=== PATIENT | male | born 1990 | race Caucasian/White ===

== ENCOUNTER 2020-07-27 11:53 | Outpatient (REF) | payer OTHER, SELFPAY ==
[2020-07-27 14:10] LABS: Hematocrit 46.4 % (42-52); Hemoglobin 15.7 g/dl (14.0-18.0); Mean Corpuscular HGB Conc 33.8 g/dl (31.0-36.0); Mean Corpuscular Hemoglobin 29.9 pg (27.0-33.0); Mean Corpuscular Volume 88.4 fL (80-98); Mean Platelet Volume 10.8 fL (9.4-12.4); Platelet Count 234 X10*3/uL (160-400); Red Blood Count 5.25 X10*6/uL (4.60-5.80); White Blood Count 6.2 X10*3/uL (4.8-10.8)
[2020-07-27 14:36] LABS: Alanine Aminotransferase 17 U/L (0-40); Albumin Level 4.6 g/dL (3.5-5.0); Alkaline Phosphatase 59 U/L (39-117); Anion Gap 13 (12-20); Aspartate Amino Transferase 15 U/L (5-37); Bilirubin Total 1.2 mg/dL (0.0-1.0); Blood Urea Nitrogen 15 mg/dL (9-16); Calcium 9.1 mg/dL (8.4-10.2); Carbon Dioxide 25 mmol/L (22-29); Chloride 106 mmol/L (96-108); Estimated Glomerular Filt Rate > 60; Glucose Random 82 mg/dL (60-115); Magnesium 2.3 mg/dL (1.6-2.6); Potassium 3.9 mmol/L (3.3-5.1); Sodium 140 mmol/L (135-145); Total Protein 6.8 g/dL (6.5-8.0)
[2020-07-27 14:44] LABS: TSH reflex Free T4 1.34 uIU/mL (0.32-4.0)
== END 2020-07-27 11:54 | disposition home or self-care (01) ==
LOC: HO.HMGCLDS 11:53
PROVIDERS: PCP Internal Medicine; Visit Provider Hospitalist
DX: I49.9 Cardiac arrhythmia, unspecified (principal)
CPT/HCPCS: 36415; 80053; 83735; 84443; 85027

== ENCOUNTER 2022-11-26 12:33 | Outpatient (AMB) | payer OTHER, SELFPAY ==
[2022-11-26 12:49] VITALS: BP 126/70; PULSE 62; O2SAT 98; BMI 29.5
--- NOTE | 2022-11-26 12:49 | A.OFFPC_ITS ---
Vital Signs 11/26/22 12:49 Height 6 ft 2 in Weight 230 lb BMI 29.5 BP 126/70 Blood Pressure Location Lt brachial Position Sitting Pulse 62 Pulse Source Pulse Oximeter Pulse Oximetry (%) 98 Oxygen Delivery Method Room Air Intake Visit Reasons: Annual PE Intake Note: Pt is here today for his PE Allergies No Known Allergies Allergy (Verified 11/26/22 13:13) Medication List - Last Reconciled 11/26/22 by Ginette Gaxiola MD No Known Home Meds Tobacco use date assessed: 11/26/22 Dental Screening Dental Screen Date: 11/26/22 Did you have a dental visit in the last 12 months?: Yes Did you have a dental problem in the last 6 months where you did not have access to dental care?: No Was dental information given to patient?: Patient has dentist [facility] Medical History Balanitis Right ankle joint deformity Right ankle pain Surgical History No pertinent past surgical history Family History Other No significant family history Social History Housing: House Alcohol intake: current Alcohol intake frequency: a few times a week Alcohol type: beer Patient Tobacco Use Status: Never used Tobacco e-Cigarette/Vaping Use: Never Used service: No Current occupational status: employed Cognitive needs: No Hearing needs: No Vision needs: Yes Questionnaire Thrive Questionnaire Date Thrive assessed: 05/29/22 AUDIT C Alcohol Use Questionnaire (AUDIT-C) 1. How often do you have a drink containing alcohol?: Monthly or less 2. How many drinks containing alcohol do you have on a typical day when you are drinking?: 1 or 2 3. How often do you have six or more drinks on one occasion?: Never Total Score: 1 ROSINA-7 AMB Questionnaire ROSINA-7 Date ROSINA - 7 assessed: 05/29/22 Source: Developed by Drs. Lamont Sullivan, Mery Torres, Michael Yost and colleagues, with an educational timmy from [employer]. Review of Systems Const Denies body aches, Denies fatigue, Denies fever(s), Denies headache(s) and Denies weakness Eyes Denies change in vision ENT Denies dizziness, Denies headache(s), Denies nasal congestion, Denies nasal discharge and Denies sore throat Card Denies chest pain, Denies lightheadedness, Denies palpitations and Denies dyspnea Resp Denies chest congestion, Denies cough, Denies dyspnea and Denies wheezing GI Denies abdominal pain, Denies change in bowel habits and Denies heartburn Denies hematuria, Denies difficulty urinating, Denies erectile dysfunction, Denies genital lesions, Denies genital pain, Denies dysuria, Denies penile discharge, Denies urinary frequency and Denies urinary urgency Skin/Breast Denies lesions and Denies rash Neuro Denies dizziness, Denies headache(s) and Denies weakness Psych Reports no additional complaints Endo Denies fatigue, Denies polydipsia, Denies polyuria and Denies palpitations Dennis/Lymph Denies easy bruising Aller/Immun Denies seasonal rhinorrhea and Denies wheezing Physical exam (Primary Care) Vital Signs: Last Vital Signs Pulse 62 11/26/22 12:49 BP 126/70 11/26/22 12:49 Pulse Ox 98 11/26/22 12:49 Oxygen Delivery Method Room Air 11/26/22 12:49 BMI result Body Mass Index 29.5 Tobacco/Smoking Status: Tobacco use Status Tobacco use date assessed 11/26/22 11/26/22 12:55 Patient Tobacco Use Status Never used Tobacco 11/26/22 12:55 e-Cigarette/Vaping Use Never Used 11/26/22 12:55 Thrive Assessment: Date of Thrive Assessment Date Thrive assessed 05/29/22 11/26/22 12:55 Const General: cooperative, healthy appearing and no acute distress Nutritional Appearance: obese and overweight Orientation/consciousness: patient oriented x3 HENMT Head: Yes normal to inspection and Yes normocephalic Ears: hearing grossly normal bilaterally, external ears normal, TM's normal bilaterally and EAC's normal General nose exam: Normal external nose present Face and sinus: Yes face symmetric Mouth: Normal oral and palatal mucosa present, oropharynx normal and moist mucous membranes Teeth and gingiva: dentition normal Eyes General: appearance normal, both eyes and all related structures Pupils: Equal, round and reactive pupils present EOM: EOMs intact bilaterally Neck Neck: Yes full ROM, Yes no lymphadenopathy and Yes supple Thyroid: Thyroid normal Chest Chest palpation & inspection: normal inspection of the chest and normal palpation of entire chest wall Resp Effort & Inspection: normal respiratory effort and able to speak in complete sentences Auscultation: clear to auscultation bilaterally Cardio Rate: regular rate Rhythm: regular rhythm Heart sounds: S1 normal heart sound present and S2 normal heart sound present GI Inspection: Yes normal to inspection Palpation (GI): Soft to palpation, nontender, no guarding and no masses Auscultation: normal bowel sounds General: Yes Bimanual renal exam normal bilaterally and Yes no CVA tenderness Male General Exam: Yes normal external exam, No inguinal lymphadenopathy and No Genital lesions present Penis: normal penis, circumcised and No Genital lesions present Meatus: meatus normal Scrotum: scrotum normal and no masses Testes: Testes normal, no testicular mass and no testicular tenderness Back/Spine/Pelvis Back: no CVA tenderness and No back tenderness Skin General skin exam: no rashes or lesions noted Neuro General: patient oriented x3, gait normal, tone normal, moves all extremities, Normal light touch and pain sensation, no focal motor deficits and CN's II-XI intact bilaterally Cranial nerves: Yes Equal, round and reactive pupils present Gait exam (Neuro): Normal gait present Extrem General: Yes normal to inspection, Yes full ROM, Yes no joint enlargement, Yes no clubbing, cyanosis or edema, Yes no calf tenderness and Yes normal gait Psych Appearance: grossly normal and well kempt Mental Status: mental status grossly normal Speech and movement: Normal speech and movement present Affect: normal affect Attitude: cooperative Thought process: Normal thought process present Assessment and Plan Assessment & Plan (1) Annual visit for general adult medical examination with abnormal findings: Code(s): Z00.01 - Encounter for general adult medical examination with abnormal findings Plan: Will check appropriate labs. Recommended dental visit every 6 months and regular eye exams, at least every 2 years. Take adequate calcium in diet and vitamin-D 3 at 2000 IU per cap once a day, in addition to weight-bearing exercises to help maintain good muscle tone and weight control. Instructed to do self-testicular exam to check for any mass.. Declines to get any vaccines (2) Obesity: Code(s): E66.9 - Obesity, unspecified Plan: Discussed need to increase activity and wt reduction. Cut back on intake of alcohol Recommended focusing on improving your health instead of dieting. : Eat Me diterranean diet, limit foods high in fat, sugar, and calories, eat slowly, pay attention to portion sizes, plan your meals ahead of time, start regular physical activity 150 minutes of moderate intensity exercise or 90 minutes/week of vigorous exercise and increase water intake. (3) Routine screening for STI (sexually transmitted infection): Code(s): Z11.3 - Encounter for screening for infections with a predominantly sexual mode of transmission Plan: Ordered screening for HIV, GC chlamydia Orders: Orders Glucose Fasting Today E66.9 - Obesity, unspecified, Z00.01 - Encounter for general adult medical examination with abnormal findings Lipid Panel Today E66.9 - Obesity, unspecified, Z00.01 - Encounter for general adult medical examination with abnormal findings HIV Ab/Ag Today Z00.01 - Encounter for general adult medical examination with abnormal findings, Z11.3 - Encounter for screening for infections with a predominantly sexual mode of transmission CT NG by PCR Today Z00.01 - Encounter for general adult medical examination with abnormal findings, Z11.3 - Encounter for screening for infections with a predominantly sexual mode of transmission Coding Level of Care Code Est Pt Prev Care 18-39y(40033) Diagnoses Annual visit for general adult medical examination with abnormal findings Z00.01 Obesity E66.9 Routine screening for STI (sexually transmitted infection) Z11.3
== END 2022-11-26 13:27 | disposition home or self-care (01) ==
PROVIDERS: Visit Provider Internal Medicine
DX: Z00.01 Encounter for general adult medical examination with abnormal findings (principal); E66.9 Obesity, unspecified; Z11.3 Encounter for screening for infections with a predominantly sexual mode of transmission; Z68.29 Body mass index [BMI] 29.0-29.9, adult
CPT/HCPCS: 99395

== ENCOUNTER 2022-11-26 13:29 | Outpatient (REF) | payer OTHER, SELFPAY ==
[2022-11-26 17:15] LABS: Cholesterol 162 mg/dL; Glucose Fasting 89 mg/dL (60-99); HDL Cholesterol 47 mg/dL; LDL Cholesterol Calculated 94 mg/dl; Triglycerides 105 mg/dL
[2022-11-27 04:08] LABS: HIV AB/AG Nonreactive (Nonreactive); HIV Num 1 0.04 S/CO (0.00-0.99)
[2022-11-27 05:13] LABS: CT PCR NOT DETECTED (Not Detect.); NG PCR NOT DETECTED (Not Detect.)
== END 2022-11-26 13:30 | disposition home or self-care (01) ==
LOC: HO.HMGCLDS 13:29
PROVIDERS: PCP Internal Medicine; Visit Provider Internal Medicine
DX: Z00.01 Encounter for general adult medical examination with abnormal findings (principal); Z11.3 Encounter for screening for infections with a predominantly sexual mode of transmission; Z11.4 Encounter for screening for human immunodeficiency virus [HIV]; E66.9 Obesity, unspecified
CPT/HCPCS: 0353U; 36415; 80061; 82947; 87389

== ENCOUNTER 2023-02-12 15:20 | Outpatient (AMB) | payer OTHER, SELFPAY ==
--- NOTE | 2023-02-12 15:23 | AM.OFFWIN_ITS ---
Intake Vital Signs 02/12/23 15:24 Height 6 ft 2 in Weight 223 lb BMI 28.6 BP 150/70 H Blood Pressure Location Lt brachial Position Sitting Pulse 70 Pulse Source Pulse Oximeter Temp 97.6 F Temp Source Temporal Artery Scan Pulse Oximetry (%) 96 Oxygen Delivery Method Room Air Intake Visit Reasons: EP Rash/RT FT concerns Intake Note: pt is here for c/o rash on right foot Patient Tobacco Use Status: Never used Tobacco Allergies No Known Allergies Allergy (Verified 02/12/23 15:25) Do you need a note to return to daycare/school/sports/work: Yes HPI HPI Comments History of Present Illness Details 32-year-old male who presents for concer n of a rash on his upper back as well as a bump on his foot. Denies fevers chills. Both have been present for several months [facility] Medical History Balanitis Right ankle joint deformity Right ankle pain Surgical History No pertinent past surgical history Family History Other No significant family history Social History Housing: House Alcohol intake: current Alcohol intake frequency: a few times a week Alcohol type: beer Patient Tobacco Use Status: Never used Tobacco e-Cigarette/Vaping Use: Never Used service: No Current occupational status: employed Cognitive needs: No Hearing needs: No Vision needs: Yes Review of Systems Musc Details: Bump on the great toe of the right foot Skin/Breast Details: Rash Physical Exam Vital Signs: Last Vital Signs Temp 97.6 F 02/12/23 15:24 Pulse 70 02/12/23 15:24 BP 150/70 H 02/12/23 15:24 Pulse Ox 96 02/12/23 15:24 Oxygen Delivery Method Room Air 02/12/23 15:24 BMI result Body Mass Index 28.6 Const General: cooperative, healthy appearing, no acute distress and alert Orientation/consciousness: patient oriented x3 Limitations: no limitations HEENT Head: Yes normal to inspection Ears: hearing grossly normal bilaterally General nose exam: Normal external nose present Resp Effort & Inspection: normal respiratory effort and able to speak in complete sentences Cardio Rate: regular rate Skin Other: Multiple pustules and comedones on the upper portion of the back General skin exam: no rashes or lesions noted Neuro General: patient oriented x3 Extrem Other: Bump on the lateral aspect and dorsal aspect of left great toe mild erythema no warmth no fluid collection. General: Yes normal to inspection Assessment & Plan Assessment & Plan (1) Acne vulgaris: Code(s): L70.0 - Acne vulgaris Plan With regard to the upper back presumes acne vulgaris will start or topical treatment with topical clindamycin and benzoyl. Lump on the foot no fluid collection or abscess signs of infection likely beginning of bunion. Recommend padding following up with Podiatry outpatient Discharge instructions, follow up and treatment are discussed with patient in my usual fashion. Alternatives in treatment are also discussed. The patient will return for worsening symptoms or as needed. Advised that any labs/imaging ordered will be followed up on and contact made if further treatment needed. Counseled that patient's condition may require further evaluation and/or treatment. Symptoms of concern for worsening disorder discussed in detail in my customary manner. Patient does verbalize understanding of the plan, there are no apparent barriers to communication. The patient is given the opportunity to ask questions and have them answered to his/her satisfaction Medications: New clindamycin phosphate 1% 1 appl topical DAILY 60 mL 0RF benzoyl peroxide 2.5% 1 appl topical BID 227 grams 0RF Coding Level of Care Code Est Pt Level 3 (50301) Diagnoses Acne vulgaris L70.0
[2023-02-12 15:24] VITALS: BP 150/70; PULSE 70; TEMP 36.4; O2SAT 96; BMI 28.6
== END 2023-02-12 15:52 | disposition home or self-care (01) ==
PROVIDERS: PCP Internal Medicine; Visit Provider Physician Assistant
DX: L70.0 Acne vulgaris (principal)
CPT/HCPCS: 99213

== ENCOUNTER 2023-03-01 02:48 | Emergency (ER) | payer OTHER, SELFPAY ==
--- NOTE | ~2023-03-01 | XR_ITS ---
EXAMINATION: XR FOOT, RIGHT CLINICAL INFORMATION: Pain. COMPARISON: None available. TECHNIQUE: AP, lateral, and oblique views of the right foot. FINDINGS: The bone mineralization is within normal limits. There is mild first metatarsophalangeal and interphalangeal degenerative change with mild loss of joint space, subchondral sclerosis and prominent osteophytes at the first metatarsophalangeal joint. There is soft tissue swelling along the first metatarsophalangeal joint. There is no acute fracture. XR/XR foot RT min 3V IMPRESSION: First metatarsophalangeal and interphalangeal degenerative change with prominent osteophytes at the first metatarsophalangeal joint and soft tissue swelling. No acute osseous abnormality seen.
[2023-03-01 02:50] VITALS: BP 120/77; PULSE 74; RESP 18; TEMP 37.2; O2SAT 96; BMI 28.6
[2023-03-01 04:38] VITALS: BP 115/62; PULSE 72; RESP 18; TEMP 36.7; O2SAT 95
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
[2023-03-01] MEDS: oxyCODONE HCl Immed Release 5 MG TABLET PO (05:14)
[2023-03-01] MEDS: predniSONE 20 MG TABLET 40 MG PO (05:14)
== END 2023-03-01 05:25 | disposition home or self-care (01) ==
PROVIDERS: Emergency Provider Emergency Medicine; PCP Internal Medicine
DX: M10.9 Gout, unspecified (principal); M79.674 Pain in right toe(s)
CPT/HCPCS: 73630; 99283; 99284

== ENCOUNTER 2023-03-16 10:30 | Outpatient (AMB) | payer OTHER, SELFPAY ==
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
[2023-03-16 10:49] VITALS: BP 136/78; PULSE 70; O2SAT 97; BMI 28.9
== END 2023-03-16 12:39 | disposition home or self-care (01) ==
PROVIDERS: PCP Internal Medicine; Visit Provider Internal Medicine
DX: M79.674 Pain in right toe(s) (principal)
CPT/HCPCS: 99213

== ENCOUNTER 2023-03-16 11:28 | Outpatient (REF) | payer OTHER, SELFPAY ==
[2023-03-16 14:12] LABS: Anion Gap 10 (12-20); Blood Urea Nitrogen 14 mg/dL (9-16); Calcium 9.5 mg/dL (8.4-10.2); Carbon Dioxide 27 mmol/L (22-29); Chloride 108 mmol/L (96-108); Estimated Glomerular Filt Rate > 60; Glucose Random 81 mg/dL (60-115); Potassium 4.4 mmol/L (3.3-5.1); Sodium 141 mmol/L (135-145); Uric Acid 5.2 mg/dL (3.4-7.0)
[2023-03-16 14:57] LABS: Erythrocyte Sedimentation Rate 1 MM/HR (0-15)
[2023-03-17 12:49] LABS: CRP High Sensitivity 0.6 mg/L
== END 2023-03-16 11:29 | disposition home or self-care (01) ==
LOC: HO.HMGCLDS 11:28
PROVIDERS: PCP Internal Medicine; Visit Provider Internal Medicine
DX: M79.674 Pain in right toe(s) (principal)
CPT/HCPCS: 36415; 80048; 84550; 85652; 86141

== ENCOUNTER 2024-03-29 08:57 | Outpatient (AMB) | payer OTHER, SELFPAY ==
--- NOTE | 2024-03-29 09:07 | A.OFFPC_ITS ---
Vital Signs 03/29/24 09:32 Height 6 ft 2 in Weight 230 lb BMI 29.5 BP 132/70 Blood Pressure Location Rt brachial Position Sitting Pulse 67 Pulse Source Pulse Oximeter Pulse Oximetry (%) 98 Oxygen Delivery Method Room Air Intake Visit Reasons: PE Intake Note: Pt is here today for his PE Allergies No Known Allergies Allergy (Verified 04/03/24 23:27) Medication List - Last Reconciled 04/03/24 by Ginette Gaxiola MD No Known Home Meds Tobacco use date assessed: 03/29/24 Dental Screening Dental Screen Date: 03/29/24 Did you have a dental visit in the last 12 months?: Yes Did you have a dental problem in the last 6 months where you did not have access to dental care?: Yes Was dental information given to patient?: Patient has dentist HPI PE HPI Details - The patient is a 33-year-old male pres enting for physical exam - Overweight: Patient reports a gain of 5 pounds since February of last year. Current BMI is 29, placing him in the overweight category. He acknowledges the need to return to dieting to prevent progression to obesity. - Blood pressure has been reportedly sta ble. - Mild Tinnitus: Describes a slight ring ing noise in the ear, denies dizziness. Change noted this year. - History of COVID-19: Possibly experien milagro COVID-19 during the initial outbreak but not formally diagnosed or recorded in the medical chart. Symptoms were observed simultaneously with a sibling who tested positive. [facility] Medical History Pain of right great toe Balanitis Right ankle joint deformity Right ankle pain Surgical History No pertinent past surgical history Family History Other No significant family history Social History Housing: House Alcohol intake: current Alcohol intake frequency: a few times a month Alcohol type: beer Patient Tobacco Use Status: Never used Tobacco e-Cigarette/Vaping Use: Never Used Second Hand Smoke Exposure: No service: No Current occupational status: employed Cognitive needs: No Hearing needs: No Vision needs: Yes Questionnaire PHQ-9 Over the last 2 weeks, how often have you been bothered by any of the following problems? 1. Little interest or pleasure in doing things: not at all 2. Feeling down, depressed, or hopeless: not at all 3. Trouble falling or staying asleep, or sleeping too much: not at all 4. Feeling tired or having little energy: not at all 5. Poor appetite or overeating: not at all 6. Feeling bad about yourself - or that you are a failure or have let yourself or your family down: not at all 7. Trouble concentrating on things, such as reading the newspaper or watching television: not at all 8. Moving or speaking so slowly that other people could have noticed. Or the opposite - being so fidgety or restless that you have been moving around a lot more than usual: not at all 9. Thoughts that you would be better off or of hurting yourself in some way: not at all Total score: 0 Depression Screening Interpretation: Negative Depression Screening Done: Yes 36544 - PHQ-9 Billing: Yes Source: Developed by Drs. Lamont Sullivan, Mery Torres, Michael Yost and colleagues, with an educational timmy from [employer]. Thrive Questionnaire Date Thrive assessed: 03/29/24 I am a: Patient What is your living situation today?: I have a steady place to live Within the past 12 months, did the food you bought not last and you didn't have the money to get more?: Never true Within the past 12 months, did you worry whether your food would run out before you got money to buy more?: Never true Do you have trouble paying for medicines?: No Do you have trouble getting transportation to medical appointments?: No Do you have trouble paying your heating and electricity bill?: No Do you have trouble taking care of your child, family member or friend?: No Do you have trouble with day-to-day activities such as bathing, preparing meals, shopping, managing finances, etc.?: No Are you currently unemployed and looking for a job?: No Are you interested in more education?: No Please select the resources that you would like help with: None Currently or been in a relationship where the following occur: I choose not to answer THRIVE Score: 0 AUDIT C Alcohol Use Questionnaire (AUDIT-C) 1. How often do you have a drink containing alcohol?: Monthly or less 2. How many drinks containing alcohol do you have on a typical day when you are drinking?: 3 or 4 3. How often do you have six or more drinks on one occasion?: Less than monthly Total Score: 3 ROSINA-7 AMB Questionnaire ROSINA-7 Date ROSINA - 7 assessed: 03/29/24 Feeling nervous, anxious, or on edge: 0 = Not at all Not being able to stop or control worryin = Not at all Worrying too much about different things: 0 = Not at all Trouble relaxin = Not at all Being so restless that it is hard to sit still: 0 = Not at all Becoming easily annoyed or irritable: 0 = Not at all Feeling afraid as if something awful might happen: 0 = Not at all Total ROSINA-7 score (0-4 normal; 5-9 mild; 10-14 moderate; 15-21 severe): 0 Source: Developed by Drs. Lamont Sullivan, Mery Torres, Michael Yost and colleagues, with an educational timmy from [employer]. ROSINA-7 Assessment Billing ROSINA-7 Assessment Tool: ROSINA-7 Assessment 42916 Review of Systems Const Denies body aches, Denies fatigue, Denies fever(s), Denies headache(s) and Denie s weakness Eyes Denies change in vision ENT Denies dizziness, Denies headache(s), Denies nasal congestion, Denies nasal discharge and Denies sore throat Card Denies chest pain, Denies lightheadedness, Denies palpitations and Denies dyspnea Resp Denies chest congestion, Denies cough, Denies dyspnea and Denies wheezing GI Denies abdominal pain, Denies change in bowel habits and Denies heartburn Denies hematuria, Denies difficulty urinating, Denies erectile dysfunction, Denies genital lesions, Denies genital pain, Denies dysuria, Denies penile discharge, Denies urinary frequency and Denies urinary urgency Musc Reports no additional complaints Skin/Breast Denies lesions and Denies rash Neuro Denies dizziness, Denies headache(s) and Denies weakness Psych Reports no additional complaints Endo Denies fatigue, Denies polydipsia, Denies polyuria and Denies palpitations Dennis/Lymph Denies easy bruising Aller/Immun Denies seasonal rhinorrhea and Denies wheezing Physical exam (Primary Care) Vital Signs: Last Vital Signs Pulse 67 03/29/24 09:32 BP 132/70 03/29/24 09:32 Pulse Ox 98 03/29/24 09:32 Oxygen Delivery Method Room Air 03/29/24 09:32 BMI result Body Mass Index 29.5 Tobacco/Smoking Status: Tobacco use Status Tobacco use date assessed 03/29/24 03/29/24 09:09 Patient Tobacco Use Status Never used Tobacco 03/29/24 09:08 e-Cigarette/Vaping Use Never Used 03/29/24 09:08 PHQ-9: PHQ-9 Score PHQ-9: Total score 0 03/29/24 10:16 Depression Screening Interpretation: Negative Thrive Assessment: Date of Thrive Assessment Date Thrive assessed 03/29/24 03/29/24 09:09 Currently or been in a relationship where the following occur: I choose not to answer Advance Care Planning discussion: Completed/Scanned Date of discussion: 03/29/24 Who was present: Patient Forms completed: Health Care Proxy Time spent: 16-45 minutes Actual minutes spent: 2 Const General: no acute distress Orientation/consciousness: patient oriented x3 HENMT Head: Yes normocephalic Ears: external ears normal, TM's normal bilaterally and EAC's normal General nose exam: Normal external nose present Face and sinus: Yes face symmetric Mouth: Normal oral and palatal mucosa present, oropharynx normal and moist mucous membranes Eyes General: appearance normal, both eyes and all related structures Neck Neck: Yes full ROM, Yes no lymphadenopathy and Yes supple Thyroid: Thyroid normal Resp Effort & Inspection: normal respiratory effort and able to speak in complete sentences Auscultation: clear to auscultation bilaterally Cardio Rate: regular rate Rhythm: regular rhythm Heart sounds: S1 normal heart sound present and S2 normal heart sound present GI Palpation (GI): Soft to palpation, nontender, no guarding and no masses Auscultation: normal bowel sounds General: Yes no CVA tenderness Male General Exam: Yes normal external exam Back/Spine/Pelvis Back: no CVA tenderness Skin General skin exam: no rashes or lesions noted Neuro General: patient oriented x3, gait normal, tone normal, moves all extremities, Normal light touch and pain sensation, no focal motor deficits and CN's II-XI intact bilaterally Gait exam (Neuro): Normal gait present Extrem General: Yes normal to inspection, Yes full ROM, Yes no joint enlargement, Yes no clubbing, cyanosis or edema and Yes normal gait Psych Appearance: grossly normal and well kempt Mental Status: mental status grossly normal Speech and movement: Normal speech and movement present Affect: normal affect Thought process: Normal thought process present Thought content: Normal thought content present Coding Level of Care Code Est Pt Prev Care 18-39y(88698) Diagnoses Annual visit for general adult medical examination with abnormal findings Z00.01 Encounter for counseling regarding advance directives Z71. Overweight with body mass index (BMI) 25.0-29.9 E66.3 Additional Codes PHQ-9 - 01144 - PHQ-9 Billing: Yes ([id number]) ROSINA-7 Assessment Billing - RSOINA-7 Assessment Tool: ROSINA-7 Assessment 08356 ([id number]) Vital Signs *Quality* - Advance Care Planning discussion: Completed/Scanned ([id number]) Vital Signs *Quality* - Time spent: 16-45 minutes ([id number]) Assessment & Plan Assessment & Plan (1) Annual visit for general adult medical examination with abnormal findings: Code(s): Z00.01 - Encounter for general adult medical examination with abnormal findings Plan: Will check appropriate labs. Recommended dental visit every 6 months and regular eye exams, at least every 2 years. Take adequate calcium in diet and vitamin-D 3 at 2000 IU per cap once a day, in addition to weight-bearing exercises to help maintain good muscle tone and weight control. Instructed to do self testicular exam check for any mass. Declines vaccines (2) Encounter for counseling regarding advance directives: Code(s): Z71.89 - Other specified counseling Plan: Initiated the conversation about Advanced Directives. Advanced Directives help patients prepare for current and future decisions about their medical treatment and place of care. Discussed with patient that it is a process where a patients current condition and prognosis are reviewed, their wishes for information regarding their illness are elicited, and likely medical dilemmas are presented and options discussed. Healthcare proxy form completed. The form can be amended as needed, reviewed yearly and make changes as needed (3) Overweight with body mass index (BMI) 25.0-29.9: Code(s): E66.3 - Overweight Plan - Overweight: Advised patient on dietary management to prevent further weight gain. Recommended follow-up fasting blood work. - Mild Tinnitus: No specific treatment necessary unless symptoms worsen. Suggested moderation in use of earphones to avoid exacerbation. - History of COVID-19: No further action required unless symptomatic. During the visit, I discussed with the patient his current health status, emphasizing the need to manage his weight through dietary adjustments. I reiterated the importance of routine fasting blood work and maintaining regular eye and dental check-ups. We reviewed past lab results, including negative STD screening tests, and noted his mild tinnitus, reassuring him that it does not require treatment unless it progresses. We talked about the importance of drinking in moderation. Patient was informed and verbally consented to the use of an ambient scribe for clinic note documentation during this visit. Orders: Orders Alanine Aminotransferase 03/29/24 E66.3 - Overweight, Z00.01 - Encounter for general adult medical examination with abnormal findings, Z71.89 - Other specified counseling Basic Metabolic Panel Fasting 03/29/24 E66.3 - Overweight, Z00.01 - Encounter for general adult medical examination with abnormal findings, Z71.89 - Other specified counseling Aspartate Amino Transferase 03/29/24 E66.3 - Overweight, Z00.01 - Encounter for general adult medical examination with abnormal findings, Z71.89 - Other specified counseling Lipid Panel 03/29/24 E66.3 - Overweight, Z00.01 - Encounter for general adult medical examination with abnormal findings, Z71.89 - Other specified counseling
[2024-03-29 09:32] VITALS: BP 132/70; PULSE 67; O2SAT 98; BMI 29.5
== END 2024-03-29 10:15 | disposition home or self-care (01) ==
PROVIDERS: PCP Internal Medicine; Visit Provider Internal Medicine
DX: Z00.01 Encounter for general adult medical examination with abnormal findings (principal); Z71.89 Other specified counseling; E66.3 Overweight

== ENCOUNTER → 2024-03-29 08:57 | Outpatient (BNVA) | payer OTHER, SELFPAY | PROVIDERS: PCP Internal Medicine; Visit Provider Internal Medicine | DX: Z00.01 Encounter for general adult medical examination with abnormal findings (principal); E66.3 Overweight; Z68.29 Body mass index [BMI] 29.0-29.9, adult; Z71.89 Other specified counseling | CPT/HCPCS: 96127; 99395; 99497 ==

== ENCOUNTER 2024-09-06 17:05 | Emergency (ER) | payer OTHER, SELFPAY ==
--- NOTE | ~2024-09-06 | CT_ITS ---
CLINICAL HISTORY: R flank pain CT abdomen and pelvis without contrast Comparison: None Findings: The lung bases are clear. The gallbladder and solid organs are within normal limits. No renal stones. No bowel obstruction, pneumoperitoneum, or pneumatosis. Pelvic contents unremarkable. Normal appendix. No acute fracture. IMPRESSION: No acute findings. This document has been electronically signed by: Sal Simpson MD on 09/07/2024 00:16:53
[2024-09-06 17:17] VITALS: BP 100/73; PULSE 101; RESP 18; TEMP 36.6; O2SAT 96; BMI 29.5
--- NOTE | 2024-09-06 17:19 | ED_ITS ---
HPI - General Adult General Chief complaint: Nausea/Vomiting/Diarrhea Stated complaint: Flank/Abdominal pain, vomiting Time Seen by Provider: 09/06/24 21:03 Source: patient and old records reviewed Mode of arrival: ambulatory Limitations: no limitations History of Present Illness ED Provider: EDU SINGH narrative: 33 yo male with no sig PMH here with c/o yellow diarrhea and nausea vomiting all day. No recent travel, abx, food exposures. He has some sick contacts but they haven't vomited. No fevers, bloody stools, he denies abdominal pain. He did start drinking fluids in the waiting room. complaint: n/v/d Onset (ago): day(s) (1) Location: abdomen Radiation: non-radiation Severity: mild Relieving factors: none Exacerbating factors: eating Associated symptoms: loss of appetite, malaise, nausea/vomiting and weakness Treatments prior to arrival: none Related Data Previous Rx's ?Medication ?Instructions ?Recorded ondansetron 4 mg disintegrating 4 mg PO Q8H PRN nausea and 09/06/24 tablet vomiting #20 tabs Allergies Allergy/AdvReac Type Severity Reaction Status Date / Time No Known Allergies Allergy Verified 09/06/24 17:18 Review of Systems 2 Review of Systems: Constitutional : No Weight loss, No Fever, No Chills ENT/Mouth : No sore throat, No Rhinorrhea Eyes: No Swelling, No Redness Cardiovascular : No Chest Pain, No SOB, NoEdema Respiratory : No Cough, No Sputum, No Wheezing Gastrointestinal : Positive Nausea, Positive Vomiting, positive Diarrhea, positive abdominal Pain, No Hematochezia, No Melena Genitourinary : No Dysuria, No Urinary Frequency, No Hematuria, No Urgency Musculoskeletal : No joint pain, No Myalgias, No Joint Swelling Skin : No Skin Lesions, No rash Neuro : No Weakness, No Numbness, No Dizziness, No Headache All other systems reviewed and are negative. [facility] Past Medical History Attestation statement: The following information was validated with the patient. Source: old records reviewed Medical History Pain of right great toe Balanitis Right ankle joint deformity Right ankle pain Surgical History No pertinent past surgical history Family History Family History Other No significant family history Social History Social History Housing: House Alcohol intake: current Alcohol intake frequency: does not drink Alcohol type: beer Patient Tobacco Use Status: Never used Tobacco e-Cigarette/Vaping Use: Never Used Second Hand Smoke Exposure: No Advance Directives Date on File: 03/29/24 service: No Current occupational status: employed Cognitive needs: No Hearing needs: No Vision needs: Yes Physical Exam ED Vital Signs: Vital Signs - 24 hr 09/06/24 17:17 09/06/24 20:29 09/06/24 23:57 Temperature 97.8 F 97 F 98.2 F Pulse Rate 101 H 96 89 Respiratory Rate 18 18 18 Blood Pressure 100/73 102/69 138/68 Pulse Oximetry 96 100 100 Oxygen Delivery Method Room Air Room Air Room Air 09/07/24 01:30 Temperature 98.2 F Pulse Rate 89 Respiratory Rate 18 Blood Pressure 138/68 Pulse Oximetry 100 Oxygen Delivery Method Room Air BMI result Body Mass Index 29.5 Appearance: Alert. Oriented X3. No acute distress. Eyes: Pupils equal, round and reactive to light. ENT: Pharynx normal. Neck: Normal inspection. Neck supple. CVS: Normal heart rate and rhythm. Pulses normal. Respiratory: No respiratory distress. Breath sounds normal. Abdomen: Soft and nontender. Skin: Skin warm and dry. Normal skin color. Normal skin turgor. Extremities: No lower extremity edema. No calf ttp Neuro: Oriented X 3. No motor deficit. No sensory deficit. CN2-12 intact Course Course Course Narrative: 09/06/24 1719 RADHA Henning This is a Rapid Medical Examination (RME) performed by Regino Staley PA-C in triage. Full HPI, ROS, assessment and treatment plan per primary provider in the Main ED. Hx: 33 yo M here for eval of acute onset right flank pain, vomiting and diarrhea since this morning. ?sick contacts at home. no urinary sx. no hx stones. Plan: labs, UA Reevaluation(s) Reevaluation #1: family and patient would feel more comfortable with imaging. Medications Administered Discontinued Medications Generic Name Dose Route Start Last Admin Trade Name Freq PRN Reason Stop Dose Admin Lactated Ringer's 1,000 mls @ 999 mls/hr 09/06/24 21:17 09/06/24 22:39 Lr IV 09/06/24 22:17 Infused .Q1H1M ONE Infusion Lactated Ringer's 1,000 mls @ 999 mls/hr 09/06/24 21:17 09/06/24 22:39 Lr IV 09/06/24 22:17 Infused .Q1H1M ONE Infusion Lactated Ringer's 1,000 mls @ 999 mls/hr 09/06/24 23:17 09/07/24 00:39 Lr IV 09/07/24 00:17 Infused .Q1H1M ONE Infusion Ondansetron HCl 4 mg 09/06/24 21:17 09/06/24 21:38 Ondansetron Hcl 4 Mg/2 Ml Vial IVPUSH 09/06/24 21:18 4 mg ONCE ONE Administration Procedures EJ/Peripheral Line Arm L: Time Out Performed: Yes Skin Cleansed in Sterile Fashion: Yes Size (gauge): 20 IV Secured and Dressing Applied: Yes Patient Tolerated Procedure: well and no complications Medical Decision Making Medical Decision Making MDM Narrative: 33 yo male with no sig PMH here with c/o n/v/d and feeling weak he has no exposures at this time no abd pain on exam, no bloody stools and no fevers. This seems viral his abdomen is benign will obtain labs and hydrate. He is already drinking fluids. Differential Diagnosis Differential Diagnoses: The differential diagnosis associated with the presentation includes viral syndrome, dehydration Admission/Observation Consideration of admission/observation: Escalation of care including admission/observation considered tolerating PO stable for DC on DC family asking about R flank pain and worried about kidney stone I relayed to them that he denied all of this to me. I explained I could order imaging but he currently is refusing and wants to give urine sample. Lab Data [facility] Lab Attestation statement: I reviewed the patient's lab results. 09/06/24 17:28 09/06/24 17:28 Labs: Lab Results 09/06/24 09/06/24 Range/Units 17:28 23:46 WBC 13.0 H (4.8-10.8) X10*3/uL RBC 6.03 H (4.60-5.80) X10*6/uL Hgb 18.2 H (14.0-18.0) g/dl Hct 52.6 H (42.0-52.0) % MCV 87.2 (80.0-98.0) fL MCH 30.2 (27.0-33.0) pg MCHC 34.6 (31.0-36.0) g/dl RDW 12.1 (11.0-16.0) % Plt Count 303 (160-400) X10*3/uL MPV 9.7 (9.4-12.4) fL Immature Gran % (Auto) 0.3 (0.0-0.4) % Neut % (Auto) 78.9 H (45-73) % Lymph % (Auto) 14.6 L (20-40) % [place] % (Auto) 5.0 (2-11) % Eos % (Auto) 0.8 (0-4) % Baso % (Auto) 0.4 (0-2) % Lymph # (Auto) 1.9 (1.2-4.9) X10*3/uL [place] # (Auto) 0.7 (0.1-1.2) X10*3/uL Eos # (Auto) 0.1 (0.0-0.4) X10*3/uL Baso # (Auto) 0.1 (0.0-0.2) X10*3/uL Abs Immat Gran (auto) 0.04 H (0.00-0.03) X10*3/uL Absolute Neuts (auto) 10.2 H (2.0-8.3) x10*3/uL Absolute Nucleated RBC 0.000 (0.0-0.012) X10*3/uL Nucleated RBC % (auto) 0.0 (0.0-0.2) /100WBC Sodium 140 (135-145) mmol/L Potassium 4.3 (3.3-5.1) mmol/L Chloride 107 (96-108) mmol/L Carbon Dioxide 21 L (22-29) mmol/L Anion Gap 16 (12-20) BUN 18 H (9-16) mg/dL Creatinine 1.36 (0.5-1.4) mg/dL Estim Creat Clear Calc 100.4 Estimated GFR > 60 Random Glucose 110 (60-115) mg/dL Calcium 10.5 H D (8.4-10.2) mg/dL Magnesium 2.2 (1.6-2.6) mg/dL Total Bilirubin 1.6 H (0.0-1.0) mg/dL AST 33 (5-37) U/L ALT 37 (0-40) U/L Alkaline Phosphatase 73 (39-117) U/L Total Protein 8.7 H (6.5-8.0) g/dL Albumin 5.7 H (3.5-5.0) g/dL Lipase 21 (8-78) U/L Urine Color Dark Yellow Urine Appearance Cloudy Urine pH 5.5 (5.0-9.0) Ur Specific [place] 1.020 (1.005-1.025) Urine Protein 100 (2+) H (Neg-Trace) mg/dL Urine Glucose (UA) Negative (Negative) mg/dL Urine Ketones Trace (Negative) mg/dL Urine Blood Negative (Negative) Urine Nitrite Negative (Negative) Ur Leukocyte Esterase Negative (Negative) Urine RBC 0-2 (0-2) /HPF Urine WBC 0-5 (0-5) /HPF Ur Squamous Epith Cells 6-10 (0-2) /HPF Calcium Oxalate Crystal Present Urine Bacteria None Seen (None Seen) Hyaline Casts >20 (0-2) /LPF Independent Interpretation I performed an independent interpretation of an: CT Scan ( R distal ureter stone) Radiology Impression Discussion of test interpretation with radiology: I have reviewed the radiologist's reading. Radiologist Impression: CT abdomen and pelvis without contrast Comparison: None Findings: The lung bases are clear. The gallbladder and solid organs are within normal limits. No renal stones. No bowel obstruction, pneumoperitoneum, or pneumatosis. Pelvic contents unremarkable. Normal appendix. No acute fracture. IMPRESSION: No acute findings. External Record Review External record reviewed: Outpatient record Prescription Management I considered prescription management with: Other Discharge Plan Discharge Clinical Impression: Acute dehydration Nausea & vomiting Qualifiers: Vomiting type: unspecified Qualified Code(s): R11.2 - Nausea with vomiting, unspecified Diarrhea Qualifiers: Diarrhea type: unspecified type Qualified Code(s): R19.7 - Diarrhea, unspecified Patient Disposition: Home, Self-Care Instructions: Dehydration (ED), Acute Nausea and Vomiting (ED), Acute Diarrhea (ED) Additional Instructions: your labs showed dehydration rest and stay hydrated drink plenty of fluids BRAT diet, bananas rice apple sauce and toast return for worsening symptoms, fever over 101, blood in stool, or any other concerns. CT scans not show evidence of a kidney stone take tylenol and motrin as needed for pain drink 60 ounces of water a day. Follow-up with the primary care doctor Prescriptions: New ondansetron 4 mg tablet,disintegrating 4 mg PO Q8H PRN (Reason: nausea and vomiting) Qty: 20 0RF Referrals: [facility] [Provider Group] Interventions: ED Discharge Assessment Last Done: 09/07/24 01:30 Discharge Date/Time: 09/07/24 01:31 Print Language: [place]
[2024-09-06 17:32] LABS: MANUAL DIFF FLAG NO
[2024-09-06 17:33] LABS: Basophils Absolute Auto 0.1 X10*3/uL (0.0-0.2); Basophils Percent Auto 0.4 % (0-2); Eosinophils Absolute Auto 0.1 X10*3/uL (0.0-0.4); Eosinophils Percent Auto 0.8 % (0-4); Hematocrit 52.6 % (42.0-52.0); Hemoglobin 18.2 g/dl (14.0-18.0); Imm Gran Abs Auto 0.04 X10*3/uL (0.00-0.03); Imm Gran Pct Auto 0.3 % (0.0-0.4); Lymphocytes Absolute Auto 1.9 X10*3/uL (1.2-4.9); Lymphocytes Percent Auto 14.6 % (20-40); Mean Corpuscular HGB Conc 34.6 g/dl (31.0-36.0); Mean Corpuscular Hemoglobin 30.2 pg (27.0-33.0); Mean Corpuscular Volume 87.2 fL (80.0-98.0); Mean Platelet Volume 9.7 fL (9.4-12.4); Monocytes Absolute Auto 0.7 X10*3/uL (0.1-1.2); Neutrophils Absolute Auto 10.2 x10*3/uL (2.0-8.3); Neutrophils Percent Auto 78.9 % (45-73); Platelet Count 303 X10*3/uL (160-400); Red Blood Count 6.03 X10*6/uL (4.60-5.80); Red Cell Distribution Width 12.1 % (11.0-16.0)
[2024-09-06 18:00] LABS: Albumin Level 5.7 g/dL (3.5-5.0); Anion Gap 16 (12-20); Aspartate Amino Transferase 33 U/L (5-37); Bilirubin Total 1.6 mg/dL (0.0-1.0); Blood Urea Nitrogen 18 mg/dL (9-16); Calcium 10.5 mg/dL (8.4-10.2); Carbon Dioxide 21 mmol/L (22-29); Chloride 107 mmol/L (96-108); Creatinine Clr Calc Pharmacy 100.4; Estimated Glomerular Filt Rate > 60; Glucose Random 110 mg/dL (60-115); Magnesium 2.2 mg/dL (1.6-2.6); Potassium 4.3 mmol/L (3.3-5.1); Sodium 140 mmol/L (135-145); Total Protein 8.7 g/dL (6.5-8.0)
[2024-09-06 18:06] LABS: Alanine Aminotransferase 37 U/L (0-40); Alkaline Phosphatase 73 U/L (39-117)
--- OUTSIDE RECORDS SUMMARY | 2024-09-06 19:51 | XMS_ITS | Encounter Summary ---
Author Organization [facility] Address [address] [place] [phone] Phone Care Team Providers Care Supervisor Ovens Name Role Phone Lamont Robert Primary Care Provider [phone] Encounter Details Date Type Department Care Team (Late st Contact Info) Description 12/04/2016 Conversion Encounter [facility] [address] [place] [address] Social History Tobacco Use Types Packs/Day Years Used Date Smoking Tobacco: Never Assessed Sex and Gender Information Value Date Recorded Sex Assigned at Not on file Legal Sex Male 4:27 PM EDT Gender Identity Not on file Sexual Orientation Not on file documented as of this encounter Plan of Treatment Not on file documented as of this encounter Visit Diagnoses Not on filedocumented in this encounter Care Teams Supervisor Ovens Relationship Specialty Start Date End Date Lamont Robert [address] [place] [address] PCP - General 11/28/16 documented as of this encounter
--- OUTSIDE RECORDS SUMMARY | 2024-09-06 19:51 | XMS_ITS | Clinical Summary ---
Author Organization [facility] Address [address] [place] [id number] Phone Care Team Providers Care Stock Transfer Clerk Name Role Phone Lamont Robert Primary Care Provider [phone] Immunizations Immunization Administration Dates Next Due DTP 09/20/1997, 4,07/30/1992,05/17,03/01/1992 Hep B, ped/adol 05/16/1997,12/12/1996,11/04/1996 Hib (PRP-T) 05/01/1993, 3,05/17/1992,03/01 MMR 02/17/1996,05/01/1993 Meningococcal Conj (Menactra) MCV4P 06/30/2006 OPV 09/20/1997, 4,05/17/1992,03/01 Td (adult) (MBL), 2 Lf tetan us toxoid, PF, adsorbed 09/25/2003 Varicella 09/07/2007,09/20/1997 Family History Relation Name Status Comments Brother Alive Brother: Alive and well Father Alive Father: Alive a nd well Mother Alive Mother: Alive a nd well Sister Alive Sister: Alive a nd well Social History Tobacco Use Types Packs/Day Years Used Date Smoking Tobacco: Never Assessed Sex and Gender Information Value Date Recorded Sex Assigned at Not on file Legal Sex Male 4:27 PM EDT Gender Identity Not on file Sexual Orientation Not on file Plan of Treatment Health Maintenance Due Date Last Done Comments DTaP,Tdap,and Td Vaccines (6 - Tdap) 09/26/2003 09/25/2003, 09/20/1997, 07/03/1993, Additional history exists Influenza Vaccines (#1) 2023 COVID-19 Vaccine ( season) 2023 HIB Vaccines Completed 05/01/1993, 07/19, 05/17/1992, Additional history exists MMR Vaccines Completed 02/17/1996, 05/01/1993 Hepatitis B Vaccines Completed 05/16/1997, 12/12/1996, 11/04/1996 IPV Vaccines Completed 09/20/1997, 06/18, 05/17/1992, Additional history exists Meningococcal Vaccine Aged Out 06/30/2006 No vin maggie eligible based on patient's age to complete this topic Varicella Vaccines Completed 09/07/2007, 09/20/1997 HPV Vaccines Aged Out No longer eligi ble based on patient's age to complete this topic Hepatitis A Vaccines Aged Out No long er eligible based on patient's age to complete this topic Men B Vaccine Aged Out No longer elig ible based on patient's age to complete this topic Pneumococcal Vaccine Aged Out No long er eligible based on patient's age to complete this topic Care Teams Stock Transfer Clerk Relationship Specialty Start Date End Date Lamont Robert [address] [place] [id number] PCP - General 11/28/16
--- OUTSIDE RECORDS SUMMARY | 2024-09-06 19:51 | XMS_ITS | Encounter Summary ---
Author Organization [facility] Address [address] [place] [phone] Phone Care Team Providers Care Dairy Nutrition Consultant Name Role Phone Lamont Robert Primary Care Provider Encounter Details Date Type Department Care Team (Late st Contact Info) Description 02/18/2013 Documentation [facility] [place] [facility] [address] [place] [address] Family Medicine, Physician [address] [place], [place] [id number] Social History Tobacco Use Types Packs/Day Years [...] on filedocumented in this encounter Care Teams Dairy Nutrition Consultant Relationship Specialty Start Date End Date Lamont Robert [address] [place] [address] PCP - General 11/28/16 documented as of this encounter
[2024-09-06 20:29] VITALS: BP 102/69; PULSE 96; RESP 18; TEMP 36.1; O2SAT 100
[2024-09-06 21:29] LABS: Lipase 21 U/L (8-78)
[2024-09-06] MEDS: ondansetron HCL 4 MG/2 ML VIAL IVPUSH (21:38)
[2024-09-06] MEDS: Lactated Ringers 1,000 ML 999 ML IV ×3 (21:38→23:44)
[2024-09-06 23:54] LABS: Appearance Urine Cloudy; Color Urine Dark Yellow; Glucose Urine UA Negative (Negative); Leukocyte Esterase Urine Negative (Negative); Nitrite Urine Negative (Negative); PH 5.5 (5.0-9.0); UMIC TRIGGER UACC YES; Urine Blood Negative (Negative); Urine Ketones Trace mg/dL (Negative); Urine Protein 100 (2+) mg/dL (Neg-Trace)
[2024-09-06 23:57] VITALS: BP 138/68; PULSE 89; RESP 18; TEMP 36.8; O2SAT 100
[2024-09-07 00:08] LABS: Bacteria Urine None Seen (None Seen); Calcium Oxalate Crystals Urine Present; Hyaline Casts Urine >20 /LPF (0-2); RBC Urine 0-2 /HPF (0-2); WBC Urine 0-5 /HPF (0-5)
[2024-09-07 01:30] VITALS: BP 138/68; PULSE 89; RESP 18; TEMP 36.8; O2SAT 100
== END 2024-09-07 01:31 | disposition home or self-care (01) ==
PROVIDERS: Physician Assistant Medical; Emergency Provider Emergency Medicine; PCP Internal Medicine
DX: E86.0 Dehydration (principal); R11.2 Nausea with vomiting, unspecified; R53.1 Weakness; R19.7 Diarrhea, unspecified; R10.2 Pelvic and perineal pain; Z79.899 Other long term (current) drug therapy
CPT/HCPCS: 36415; 74176; 80053; 81001; 83690; 83735; 85025; 96361; 96374; 99284; J2405; J7120

== ENCOUNTER → 2024-09-06 23:17 | Outpatient (BNV) | payer OTHER, SELFPAY | PROVIDERS: Emergency Provider Emergency Medicine; PCP Internal Medicine; Visit Provider Radiology Diagnostic Radiology | DX: R10.9 Unspecified abdominal pain (principal) | CPT/HCPCS: 74176 ==